=== PATIENT | male | born 1975 | race Caucasian/White ===

== ENCOUNTER 2017-06-02 14:21 | Emergency (ER) | payer MEDICAID ==
[~2017-06-02] VITALS: Ht 165.1 cm; Wt 95.3 kg
[2017-06-02 15:42] LABS: BASOPHILS % 0.2 % (0.0-2.0); EOSINOPHILS % 0.8 % (0.0-5.0); HEMATOCRIT. 45.2 % (42.0-52.0); HEMOGLOBIN. 15.5 g/dL (14.0-18.0); LYMPHOCYTES % 9.2 % (20.0-50.0); MEAN CORPUSCULAR HEMOGLOBIN 29.5 pg (28.0-32.0); MEAN PLATELET VOLUME 8.5 fl (7.4-10.4); MONOCYTES % 4.3 % (2.0-8.0); NEUTROPHILS % 85.5 % (40.0-76.0); PLATELET 198 x1000/uL (130-400); RED BLOOD CELL COUNT 5.26 mill/uL (4.7-6.1); RED CELL DISTRIBUTION WIDTH 13.8 % (11.6-14.6)
[2017-06-02 15:45] LABS: CHLORIDE 105 mEq/L (98-107)
[2017-06-02 15:52] LABS: PROTHROMBIN TIME 10.7 sec (9.4-11.6)
[2017-06-02 15:54] LABS: CARBON DIOXIDE 29 mEq/L (21-32)
[2017-06-02] MEDS ORDERED: ASPIRIN 325MG EC TABLET PO ONE (16:15)
[2017-06-02 16:36] VITALS: BP 142/93
== END 2017-06-02 16:43 | disposition home or self-care (01) ==
LOC: ER 14:41
DX: I10 Essential (primary) hypertension (principal); F41.9 Anxiety disorder, unspecified
CPT/HCPCS: 36415; 70450; 71010; 80053; 85025; 85610; 99285; Z7610